=== PATIENT | female | born 1985 | race Caucasian/White ===

== ENCOUNTER 2018-06-04 13:42 | Emergency (ER) | payer OTHER ==
[2018-06-04 13:48] VITALS: BP 124/87; PULSE 85; RESP 16; TEMP 98.2
[2018-06-04] MEDS ORDERED: LIDOCAINE/EPINEPHR/TETRACAINE 5 ML BOTTLE TOPICAL ONE (14:26)
--- NOTE | 2018-06-04 14:38 | ED ---
Wound/Laceration HPI - General Chief Complaint: Wound/Laceration Stated Complaint: Lip Lac Time Seen by Provider: 06/04/18 13:58 Source: patient, RN notes reviewed, old records reviewed Mode of arrival: ambulatory Limitations: no limitations - History of Present Illness Initial Comments: This is a 33 year old female with CC of laceration over L lip corner. Patient had the laceration after ship tripped and fell. She reports she fell last night. Patient reports when she eats the laceration reopens. Patient is up to date on TDAP. - Related Data Home Medications Medication Instructions Recorded Confirmed Orthotricycline 1 tab PO DAILY 04/20/14 04/20/14 Allergies Allergy/AdvReac Type Severity Reaction Status Date / Time No Known Allergies Allergy Verified 06/04/18 13:48 Review of Systems ROS Statement: Those systems with pertinent positive or pertinent negative responses have been documented in the HPI. ROS Other: All systems not noted in ROS Statement are negative. Past Medical History Past Medical History: No Reported History History of Any Multi-Drug Resistant Organisms: None Reported Past Surgical History: Tonsillectomy Additional Past Surgical History / Comment(s): wisdom teeth removal Past Psychological History: No Psychological Hx Reported Smoking Status: Never smoker Past Alcohol Use History: Occasional Past Drug Use History: None Reported General Exam - General Exam Comments Initial Comments: Well appearing 33 year old female, no distress. Limitations: no limitations General appearance: alert, in no apparent distress Head exam: Present: atraumatic, normocephalic, normal inspection Eye exam: Present: normal appearance, PERRL, EOMI. Absent: scleral icterus, conjunctival injection, periorbital swelling ENT exam: Present: normal exam, mucous membranes moist, other (2cm laceration over the corner of left lip. No vermilion border envolvement. ) Neck exam: Present: normal inspection. Absent: tenderness, meningismus, lymphadenopathy Respiratory exam: Present: normal lung sounds bilaterally. Absent: respiratory distress, wheezes, rales, rhonchi, stridor Cardiovascular Exam: Present: regular rate, normal rhythm, normal heart sounds. Absent: systolic murmur, diastolic murmur, rubs, gallop, clicks GI/Abdominal exam: Present: soft, normal bowel sounds. Absent: distended, tenderness, guarding, rebound, rigid Extremities exam: Present: normal inspection, full ROM, normal capillary refill. Absent: tenderness, pedal edema, joint swelling, calf tenderness Back exam: Present: normal inspection Neurological exam: Present: alert, oriented X3, CN II-XII intact Psychiatric exam: Present: normal affect, normal mood Skin exam: Present: warm, dry, intact, normal color. Absent: rash Course Vital Signs 06/04/18 13:45 Temperature 98.2 F Pulse Rate 85 Respiratory 16 Rate Blood Pressure 124/87 O2 Sat by Pulse 100 Oximetry Procedures - Laceration Laceration #1 Site: lip (L lip corner) Size (cm): 2 Description: linear Depth: simple, single layer Anesthetic Used: lidocaine 1% Anesthesia Technique: local infiltration Amount (mls): 2 Pre-repair: wound explored, irrigated extensively Type of Sutures: nylon Size of Sutures: 6-0 Number of Sutures: 2 Technique: simple, interrupted Patient Tolerated Procedure: well, no complications Medical Decision Making - Medical Decision Making 33 year old female with left lip laceration after falling last night. Patient has less than 2cm laceration not involving the grace border. Patient had 2 cm laceration that was well approximated with 2 sutures. Wound was cleansed. TDAP is up todate. Discussed monitoring for infection. Discussed return parameters. All questions answered and return parameters discussed. Disposition Clinical Impression: Facial laceration Disposition: HOME SELF-CARE Condition: Good Instructions: Facial Laceration (ED) Additional Instructions: Please return to the emergency room in 5 days to have sutures removed. Please leave wound covered for the first 24-48 hours and then leave open to air after that time. Please use clean soap and water to clean the suture area to prevent scabbing over the top of your sutures. Please watch for any signs of infection which may include but not limited to increased pain, swelling, redness, fever or chills. Please return to the emergency room if any signs of infection do occur. Please return to the emergency room for any other concerns or complications. Is patient prescribed a controlled substance at d/c from ED?: No Referrals: Keri Balderas MD [Primary Care Provider] - 1-2 days Time of Disposition: 14:37
== END 2018-06-04 15:20 | disposition home or self-care (01) ==
LOC: EC 13:42
DX: S01.511A Laceration without foreign body of lip, initial encounter (principal); Z79.3 Long term (current) use of hormonal contraceptives; W01.190A Fall on same level from slipping, tripping and stumbling with subsequent striking against furniture, initial encounter
CPT/HCPCS: 12011; 99283